=== PATIENT | female | born 1985 | race Caucasian/White ===

== ENCOUNTER 2022-05-24 08:50 | Emergency (ER) | payer SELFPAY ==
--- NOTE | 2022-05-24 09:45 | NUR ---
CALLED X1.NO SHOW. Addendum: 05/24/22 at 1043 by [facility] PATIENT LEFT WITHOUT BEING SEEN BY DR. DR WILLS. NO FURTHER CARE PROVIDED FOR PATIENT.
--- NOTE | 2022-05-24 10:00 | NUR ---
CALLED X 2. NO SHOW.
[2022-05-24] MEDS ORDERED: ATRO1TAB PO (13:24)
[2022-05-24] MEDS ORDERED: ONDA-188 PO (13:24)
[2022-05-24] MEDS ORDERED: SULF-58 PO (13:24)
== END 2022-05-24 09:45 | disposition left against medical advice (07) ==
LOC: MED 08:50
DX: R10.9 Unspecified abdominal pain (principal); Z53.21 Procedure and treatment not carried out due to patient leaving prior to being seen by health care provider

== ENCOUNTER 2022-05-24 11:28 | Emergency (ER) | payer MEDICAID ==
[~2022-05-24] VITALS: Ht 139.7 cm; Wt 111.1 kg
[2022-05-24 11:43] VITALS: BP 149/89
--- NOTE | 2022-05-24 12:53 | NUR ---
36YO FEMALE PT C/O N/D AND CRAMPING 4/10 LOWER ABDOMINAL X4DAYS. DENIES BLOOD IN DIARRHEA OR RELIEF AFTER TAKING TYLENOL. STATES NAUSEA WHEN IN MOST PAIN W/ RADIATION TO LOWER KEE. ABDOMEN NON DISTENDED OR TENDER, ACTIVE X4. DENIES DYSURIA, CHEST PAIN, SOB , FEVER OR CHILLS. PT AAOX4, IN VISIBLE DISTRESS AND GUARDING ABDOMEN. HX:DENIES NKA
[2022-05-24] MEDS ORDERED: ATRO1TAB PO (13:24)
[2022-05-24] MEDS ORDERED: SULF-58 PO (13:24)
[2022-05-24] MEDS ORDERED: ONDA-188 PO (13:24)
[2022-05-24] MEDS: DIPHENOXYLATE /ATROPINE 2.5 MG TAB PO ONE (13:48)
[2022-05-24] MEDS: ONDANSETRON 4 MG ODT PO ONE (13:50)
[2022-05-24 14:05] VITALS: BP 127/83
--- NOTE | 2022-05-24 14:05 | NUR ---
Patient discharged with v/s stable. Written and verbal after care instructions FOR UTI, V/D given and explained. Patient alert, oriented and verbalized understanding of instructions. Ambulatory with steady gait. All questions addressed prior to discharge. ID band removed. Patient advised to follow up with PMD. Rx of LOMOTIL, ZOFRAN AND BACTRIM given.Opportunity to ask questions provided and answered.
--- NOTE | 2022-05-24 14:10 | NUR ---
The patient's care was reviewed and supervised by Marah Parikh RN.
== END 2022-05-24 14:05 | disposition home or self-care (01) ==
LOC: MED 11:28
DX: N39.0 Urinary tract infection, site not specified (principal); R11.2 Nausea with vomiting, unspecified; R19.7 Diarrhea, unspecified
CPT/HCPCS: 81025; 99283; Q0162